=== PATIENT | female | born 1980 | race Caucasian/White ===

== ENCOUNTER 2020-11-12 13:09 | Emergency (ER) | payer OTHER ==
[~2020-11-12 13:09] MED LIST: BENADRYL25 MG PO; CLARITIN10 MG PO; EXCEDRIN MIGRA1 EACH PO; FLONASE 0.05% N16 GM; GABAPENTIN600 MG PO; GAS RELIEF80 MG PO; GLUCOPHAGE1000 MG PO; MIDOL CAPLET1 EAC1 PO; MUSCLE RUB CRE113 GM TP; NORFLEX 100 MG100 MG PO; PERCOCET 10-321 EACH PO; PRILOSEC OTC20 MG PO; SINGULAIR10 MG PO; TORADOL 10 MG T10 MG PO; TRANDATE 100 M100 MG PO; VENTOLIN HFA 66.7 GM INH; VISTARIL 25 MG25 MG PO; ZANTAC150 MG PO; ZITHROMAX250 MG PO; ZOLOFT50 MG PO; [UNRECOGNIZED DRUG - OTHER]; allergy shot IM
[2020-11-12] MEDS ORDERED: NAPROSYN500 MG PO (15:23)
== END 2020-11-12 15:38 | disposition home or self-care (01) ==
LOC: ER1 13:09
DX: T14.8XXA Other injury of unspecified body region, initial encounter (principal); M25.521 Pain in right elbow; M25.531 Pain in right wrist; F17.200 Nicotine dependence, unspecified, uncomplicated; Z88.8 Allergy status to other drugs, medicaments and biological substances; W01.0XXA Fall on same level from slipping, tripping and stumbling without subsequent striking against object, initial encounter; Y92.89 Other specified places as the place of occurrence of the external cause; Y99.0 Civilian activity done for income or pay
CPT/HCPCS: 73080; 73090; 73110; 99283

== ENCOUNTER 2021-03-23 07:49 | Emergency (ER) | payer OTHER ==
[~2021-03-23 07:49] MED LIST changes: +NAPROSYN500 MG PO
== END 2021-03-23 09:50 | disposition home or self-care (01) ==
LOC: ER1 07:49
DX: J02.9 Acute pharyngitis, unspecified (principal); J45.909 Unspecified asthma, uncomplicated; Z79.01 Long term (current) use of anticoagulants; Z79.899 Other long term (current) drug therapy; F17.210 Nicotine dependence, cigarettes, uncomplicated; Z20.822 Contact with and (suspected) exposure to COVID-19
CPT/HCPCS: 0240U; 87081; 87880; 99283